=== PATIENT | male | born 1985 | race Caucasian/White ===

== ENCOUNTER 2019-02-19 04:56 | Inpatient (IN) | payer MEDICAID ==
[2019-02-19] VITALS (10 sets, daily range): BP systolic 96–141; BP diastolic 73–97
[~2019-02-19] VITALS: Ht 177.8 cm; Wt 90.7 kg
[2019-02-19] MEDS ORDERED: EPIPEN 2-P0.3 MG/0.3 IM (05:01)
--- NOTE | 2019-02-19 05:14 | Emergency Room Report ---
History of Present Illness General Chief Complaint: Allergic Reaction Source: Patient, EMS Present Illness HPI This a 33-year-old male with a history of idiopathic angioedema with frequent exacerbation. He had multiple admission for angioedema and required intubation in the past. His last admission was a couple weeks ago and was [facility]. He said he was with his friend in [place] when he had difficulty breathing redness to his face and swelling. He called 911. He did not have his EpiPen with him. EMS gave him albuterol treatment and 0.5 of epinephrine IM. Patient said he is feeling better now. Still has hoarseness to his voice. No fever chills. No nausea no vomiting. Similar symptom in the past. He has multiple work-up and has multiple environmental allergies. Allergies: Coded Allergies: No Known Allergies (Unverified , 02/19/19) Patient History Past Medical History: see triage record, old chart reviewed Past Surgical History: none Pertinent Family History: none Social History: Denies: smoking Immunizations: other Reviewed Nursing Documentation: PMH: Agreed; PSxH: Agreed Nursing Documentation-PMH Past Medical History: No History, Except For Hx Asthma: Yes Review of Systems Eye: Denies: eye pain, blurred vision ENT: Reports: throat pain, throat swelling; Denies: ear pain, nose congestion Respiratory: Reports: cough, shortness of breath Cardiovascular: Denies: chest pain, palpitations Gastrointestinal: Denies: abdominal pain, diarrhea, nausea, vomiting Musculoskeletal: Denies: back pain, joint pain Skin: Reports: rash Neurological: Denies: headache, numbness Endocrine: Denies: increased thirst, increased urine Hematologic/Lymphatic: Denies: easy bruising All Other Systems: negative except mentioned in HPI Physical Exam Vital Signs Date Time Temp Pulse Resp B/P (MAP) Pulse Ox O2 Delivery O2 Flow Rate FiO2 02/19/19 04:57 98.6 110 22 136/84 (101) 100 Vitals with tachycardia Sp02 EP Interpretation: reviewed, normal General Appearance: well appearing, no apparent distress, alert Head: normocephalic, atraumatic Eyes: bilateral eye PERRL, bilateral eye EOMI ENT: hearing grossly normal, normal pharynx Neck: full range of motion, supple, no meningismus, other - No stridor Respiratory: chest non-tender, lungs clear, normal breath sounds, decreased breath sounds, accessory muscle use Cardiovascular #1: regular rate, rhythm, no murmur Gastrointestinal: normal bowel sounds, non tender, no mass, no organomegaly, no bruit, non-distended Musculoskeletal: back normal, normal range of motion, gait/station normal Psychiatric: mood/affect normal Skin: other - Flushing and hyperemia to his face Procedures Critical Care Time Critical Care Time Critical care is mandated in this patient who presented with angioedema. Patient require my urgent intervention to attenuate the risks of respiratory collapse which may lead to cardiovascular collapse and . Critical care time is 35 minutes excluding any reportable procedure. Critical care time included evaluation, multiple reevaluation, looking at old charts, interpreting laboratory and diagnostic data, discussing case with patient and family and consultants, and charting. Medical Decision Making Diagnostic Impression: Primary Impression: Idiopathic angioedema Qualified Codes: T78.3XXA - Angioneurotic edema, initial encounter ER Course Patient presents with exacerbation of his angioedema. He received epinephrine and breathing treatment by EMS. I order Benadryl and Solu-Medrol and Pepcid here. Patient said that he is allergic to steroid. He tried Decadron, Solu- Medrol, prednisone in the past. He developed more urticaria with it. He was told not to take it anymore. Patient presents with anaphylaxis secondary to angioedema. Initially he was doing well and had to go upstairs to ICU to intubate a patient. While there he started complaining of itchiness and shortness of breath again. When I came down to reexamine him he has some stridor and increased redness to his upper chest and face. He asked for more epinephrine. He wanted IM because IV epinephrine caused him to go into V. tach. I gave him more Benadryl. He does not have angioedema of his tongue. He does have some swelling to the uvula. Also gave him breathing treatment here because he complained of shortness of breath. Because of his presentation, will admit for monitoring and potential more medication. Patient said at this point he does not need a intubation or IV epinephrine drip. I discussed the case with Dr. Mitchell who accepted patient for admission. EKG Diagnostic Results Rate: normal Rhythm: NSR ST Segments: no acute changes Rhythm Strip Diag. Results EP Interpretation: yes Rate: 109 Rhythm: NSR, no PVC's, no ectopy Chest X-Ray Diagnostic Results Chest X-Ray Diagnostic Results : Chest X-Ray Ordered: Yes # of Views/Limited/Complete: 1 View Indication: Shortness of Breath EP Interpretation: Yes Interpretation: no consolidation, no effusion, no pneumothorax, no acute cardiopulmonary disease Impression: No acute disease Electronically Signed by: Ar Self MD Last Vital Signs Date Time Temp Pulse Resp B/P (MAP) Pulse Ox O2 Delivery O2 Flow Rate FiO2 02/19/19 04:57 98.6 110 22 136/84 (101) 100 Status: improved Disposition: ADMITTED INPATIENT Condition: Serious Ar Self MD Feb 19, 2019 05:14
[2019-02-19] MEDS: Solu-MEDROL 125mg Inj IVP ONE ×2 (05:15→05:25)
[2019-02-19] MEDS ORDERED: DiphenhydrAMINE 50mg/ml Inj IVP ONE ×5 (05:15→11:45)
--- NOTE | 2019-02-19 05:28 | NUR ---
ED Nurse Note: Pt brought in by ambulance from friend's house, pt has hx of allergic reactions with intubation. Pt presents with redness, flushed, swollen neck and upper chest, swollen tongue and throat, hoarsness and difficulty breathing. Pt VSS, 98% on RA, PT is A&Ox4, calm. Given epi enRoute, ERMD at bedside.
--- NOTE | 2019-02-19 05:32 | NUR ---
ED Nurse Note: Pt suddenly felt airway closing, wheezing and minimal air movement heard, sp02 99% on RA, 0.5mg epi given IM, pt immediately felt relief, ERMD at bedside
[2019-02-19 05:35] LABS: BASOPHILS % (AUTO) 0.9 % (0.0-2.0); EOSINOPHILS % (AUTO) 0.7 % (0.0-3.0); HEMATOCRIT 43.9 % (42.0-52.0); HEMOGLOBIN 15.2 G/DL (14.2-18.0); LYMPHOCYTES % (AUTO) 36.8 % (20.0-45.0); MEAN CORPUSCULAR VOLUME 88 FL (80-99); MONOCYTES % (AUTO) 11.1 % (1.0-10.0); NEUTROPHILS % (AUTO) 50.6 % (45.0-75.0); PLATELET COUNT 262 K/UL (150-450); RED BLOOD COUNT 4.99 M/UL (4.70-6.10); RED CELL DISTRIBUTION WIDTH 10.9 % (11.6-14.8); WHITE BLOOD COUNT 8.1 K/UL (4.8-10.8)
[2019-02-19] MEDS ORDERED: Albuterol ud Inhalation HHN ONE (05:45)
[2019-02-19] MEDS ORDERED: EPINEPHrine 1mg/1ml Amp IM ONE (05:45)
--- NOTE | 2019-02-19 05:50 | NUR ---
ED Nurse Note: Pt reporting increased itching on head/face/chest and throat, ERMD notified, 50mg benadryl ordered and given per order
[2019-02-19 05:58] LABS: ANION GAP 10 mmol/L (5-15); BLOOD UREA NITROGEN 17 mg/dL (7-18); CALCIUM 8.3 MG/DL (8.5-10.1); CARBON DIOXIDE 28 MMOL/L (21-32); CHLORIDE 108 MMOL/L (98-107); CREATININE 1.2 MG/DL (0.55-1.30); POTASSIUM 3.4 MMOL/L (3.5-5.1); SODIUM 146 MMOL/L (136-145)
--- NOTE | 2019-02-19 07:05 | NUR ---
ED Nurse Note: Report given by MARA Page. Pt vital signs in stable condition. Pt resting in bed. Pt reports cause of allergic reaction is unknown.
--- NOTE | 2019-02-19 07:05 | NUR ---
HAND-OFF: Report given to MARA Crockett.
[2019-02-19 07:14] LABS: APPEARANCE,URINE CLEAR; BILIRUBIN, URINE NEGATIVE (NEGATIVE); COLOR,URINE PALE YELLOW; GLUCOSE, URINE (UA) NEGATIVE (NEGATIVE); KETONES,URINE 1+ (NEGATIVE); LEUKOCYTE ESTERASE ,URINE NEGATIVE (NEGATIVE); NITRITE,URINE NEGATIVE (NEGATIVE); PH,URINE 5 (4.5-8.0); PROTEIN,URINE NEGATIVE (NEGATIVE); UROBILINOGEN,URINE NORMAL MG/DL (0.0-1.0)
[2019-02-19] MEDS ORDERED: DiphenhydrAMINE 50mg/ml Inj ONE ×3 (07:27→11:29)
--- NOTE | 2019-02-19 07:33 | NUR ---
ED Nurse Note: PT CO of severe and sudden onset of itching in throat and body. ERMD aware. Pt given Benadryl 50mg, tolerated well, reported significant decrease in itchy sensation.
[2019-02-19] MEDS ORDERED: EPINEPHrine 1mg/1ml Amp ONE (07:35)
[2019-02-19] MEDS ORDERED: Acetaminophen 650mg/20.3ml ORAL ONE (07:45)
--- NOTE | 2019-02-19 08:01 | Diagnostic Imaging Report ---
EXAM: XR Chest, 1 View CLINICAL HISTORY: SOB TECHNIQUE: Frontal view of the chest. COMPARISON: No relevant prior studies available. FINDINGS: Lungs: Low lung volume accentuate pulmonary markings. Mild vascular congestion can give this appearance. Pleural space: No pleural effusion. No pneumothorax. Heart: Unremarkable. No cardiomegaly. Mediastinum: Unremarkable. Bones/joints: Unremarkable. Tubes, lines and devices: Overlying chest leads obscure portion of the chest. IMPRESSION: 1. Low lung volume limit evaluation. 2. Possible mild vascular congestion.
--- NOTE | 2019-02-19 08:27 | NUR ---
ED Nurse Note: Pt sleeping in bed, vital signs in stable condition, no signs of difficulty breathing.
--- NOTE | 2019-02-19 10:49 | NUR ---
ED Nurse Note: RN discontinued IV 20g from right neck as it was not patent and applied clean, dry dressing.
--- NOTE | 2019-02-19 10:57 | NUR ---
ED Nurse Note: report given to MARA Rahman in ICU for transfer. Room not ready.
[2019-02-19] MEDS ORDERED: LEXAPRO20 MG ORAL (11:14)
[2019-02-19] MEDS ORDERED: ALPRAZOLAM1 MG ORAL (11:14)
[2019-02-19] MEDS ORDERED: ZYRTEC10 MG ORAL (11:14)
[2019-02-19] MEDS ORDERED: ABILIFY10 MG ORAL (11:14)
[2019-02-19] MEDS ORDERED: MONTELUKAST SOD10 MG ORAL (11:14)
[2019-02-19] MEDS ORDERED: WELLBUTRIN XL150 MG ORAL (11:14)
[2019-02-19] MEDS ORDERED: BENADRYL25 MG ORAL (11:14)
--- NOTE | 2019-02-19 11:30 | NUR ---
NURSE NOTES: RECEIVED PATIENT FROM ER VIA GURNEY. REPORT GIVEN BY Kvng PAREDES RN. PATIENT IS AWAKE, ALERT AND ORIENTED BUT EXPERIENCING THROAT IRRITATION AND FACIAL REDNESS. DUE IV MEDS WAS GIVEN. ON ROOM AIR. SATING AT 100%. PIV'S ON R AC G22 AND R FA G20, SL. THOROUGH SKIN ASSESSMENT DONE. ORIENTED TO ROOM. BEDSIDE TEACHING DONE. CALL LIGHT WITHIN REACH. BED AT LOWEST POSITION. SIDE RAILS UP. WILL CONTINUE TO MONITOR.
--- NOTE | 2019-02-19 11:30 | NUR ---
ED Nurse Note: Pt transferred to ICU, report given to MARA Rahman. Pt began feeling severe itchiness in throat and body during transport, medication was administered in ICU by ED Nurse and ICU MD aware and at bedside. Pt stablized after med administration and reported immediate relief.
--- NOTE | 2019-02-19 11:35 | NUR ---
ED Nurse Note: pt c/o throat irritation and face turns to red during transportation to ICU. Dr. Valenzuela notified and gave 50mg benadryl IVP. per pt, feels better after meds given. Dr. Mitchell at the ICU bed side and notified that meds given due to sx.
--- NOTE | 2019-02-19 11:40 | NUR ---
NURSE NOTES: SEEN AND EXAMINED BY DR VALDEZ WITH NEW ORDERS MADE AND CARRIED OUT. WILL CONTINUE TO MONITOR.
[2019-02-19] MEDS ORDERED: ALPRAZolam 0.5mg tab ORAL PRN (12:00)
[2019-02-19] MEDS ORDERED: Montelukast 10mg tablet ORAL SCH (12:00)
[2019-02-19] MEDS ORDERED: BuPROPion XL 150mg tab ORAL SCH (12:00)
[2019-02-19] MEDS ORDERED: ARIPiprazole 10mg tab ORAL SCH (12:00)
[2019-02-19] MEDS ORDERED: Albuterol/Ipratropium 3ml neb HHN PRN (12:15)
[2019-02-19] MEDS: EPINEPHrine 1mg/1ml Amp IM PRN ×2 (13:01→14:48)
--- NOTE | 2019-02-19 13:02 | NUR ---
NURSE NOTES: PATIENT C/O ITCHINESS AND NOTED TO RED. DUE MEDS GIVEN. HOOKED TO 2L NC. VSS. WILL CONTINUE TO MONITOR.
[2019-02-19] MEDS ORDERED: DiphenhydrAMINE 50mg/ml Inj IVP PRN (15:00)
--- NOTE | 2019-02-19 15:00 | NUR ---
NURSE NOTES: SPOKE WITH Jocy ZEPEDA PATIENT REQUESTED FOR IV BENADRYL TO BE GIVEN Q2HR. AGREED AND MADE AN ORDER. INFORMED PHARMACIST. WILL CONTINUE TO MONITOR.
[2019-02-19] MEDS: DiphenhydrAMINE 50mg/ml Inj IVP PRN ×2 (15:43→15:45)
--- NOTE | 2019-02-19 17:00 | NUR ---
NURSE NOTES: PATIENT IS NOT ON RESPIRATORY DISTRESS.
--- NOTE | 2019-02-19 18:45 | NUR ---
NURSE NOTES: PATIENT INSISTED TO GO HOME AND WANTS GO AMA. INFORMED OF RISKS AND BENEFITS. BUT STIL INSISTED TO GO. CALLED AND LEFT A MESSAGE TO DR VALDEZ INFORMING HIM RE THIS MATTER. TRIED CALLING THE MOTHER TOO BUT DOESN'T ANSWER THE CALL. CN SPOKE WITH THE PATIENT.
--- NOTE | 2019-02-19 19:05 | NUR ---
HAND-OFF: Report given to Jose Gillespie RN.
--- NOTE | 2019-02-19 19:10 | NUR ---
AMA: SEE AMA FORM. Spoke to and okay to CHRISTIAN. No acute distress noted at this time. Pt signed the AMA form. IV taken out. All belongings given to pt and observed pt walking out.
--- NOTE | 2019-02-20 10:33 | NUR ---
CASE MANAGEMENT: CM review and clinical information (face sheet/ ER MD report) faxed to [facility] Dept @ [phone]
--- NOTE | 2019-02-21 13:01 | History and Physical Report ---
CHIEF COMPLAINT/REASON FOR HOSPITALIZATION: The patient is a 33-year-old male admitted with angioedema. HISTORY OF PRESENT ILLNESS: The patient has had a history of angioedema apparently since age 31 uncertain etiology with multiple hospitalizations often in intensive care unit and he was intubated on one occasion to protect his airway. He on this admission developed facial redness, some hoarseness in his voice, and difficulty breathing. He was seen in the emergency room after EMS gave him albuterol and epinephrine. He has had a workup in the past. He has seen an vehicle assembler but there is no clear triggering factor. He is on psychotropic medicines for depression but in the past he stopped and resumed without any change in frequency or intensity of episodes. Today's episode was similar to prior episodes. ALLERGIES: He states he is allergic to steroids and he has been given Solu-Medrol, Decadron, and prednisone, and gets facial reactions including boils shortly after steroids. HABITS: He is a nonsmoker, occasional alcohol. No drugs. 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 FAMILY HISTORY: Sister has had hives, brothers had allergic reaction to penicillin. HOME MEDICATIONS: Include Lexapro 20 mg daily, Wellbutrin 300 mg daily, Abilify 10 mg daily, alprazolam 1 mg every 8 hours as needed, Zyrtec 10 mg daily, montelukast one daily, albuterol inhaler as needed. PAST SURGICAL HISTORY: None. SYSTEM REVIEW: HEAD EYES, EARS, NOSE, AND THROAT: Vision and hearing is good. ENDOCRINE: No known diabetes or thyroid disease. PULMONARY: History of wheezing associated with angioedema. No history of chronic cough or shortness of breath. CARDIAC: No angina or OR. No palpitations. GASTROINTESTINAL: No gastrointestinal bleeding but is queasy during these episodes. GENITOURINARY: He has had episodes of kidney stones in the past. No procedure done. MUSCULOSKELETAL: No history of chronic joint pain. NEUROLOGIC: No CVA or seizures. PHYSICAL EXAMINATION: GENERAL: The patient is alert man, seen shortly after arriving in the emergency room. VITAL SIGNS: Temperature 98.6, pulse 97, respiratory rate 16, blood pressure 138/82, O2 saturation 100% on room air. HEAD EYES, EARS, NOSE, AND THROAT: There is generalized facial erythema. The tongue does not appear swollen to me, perhaps some enlargement the uvula. There is no obvious increase erythema in the throat. NECK: No adenopathy. LUNGS: Clear. HEART: Regular rhythm. I hear no murmur. ABDOMEN: Soft without organomegaly or masses. EXTREMITIES: No edema, cyanosis, or clubbing. NEUROLOGIC: He is alert and oriented. Cranial nerves are intact. SKIN: Generalized facial and erythema throughout his chest in a confluent pattern. There is also some urticaria above the IV site and received some Benadryl. PERTINENT LABORATORY DATA: Show white count 8.1, hemoglobin of 15.2. Potassium is 3.4. IMPRESSION: Angioedema likely idiopathic with urticaria, etiology unclear. He was admitted to the ICU to protect his airway. He is already improving at the time of my exam. PLAN: We will get intermittent epinephrine as needed, increase dose of Zyrtec and Benadryl, and will observe his symptoms. Sj Mitchell M.D. DR: Husam JOB#: [id number] CC:
--- NOTE | 2019-02-22 02:00 | Discharge Summary ---
DATE OF ADMISSION: 02/19/2019 DATE OF DISCHARGE: 02/19/2019 PERTINENT HISTORY: The patient is a 33-year-old man admitted with angioedema and some laryngospasm. See the History and Physical for dictation. COURSE IN THE HOSPITAL: The patient went to the intensive care unit. He was given epinephrine and Benadryl. No steroids because he states he is allergic to them. With the above treatment, he improved and he asked to leave the hospital against medical advice and he left the hospital against medical advice. FINAL DIAGNOSES: 1. Angioedema, idiopathic. 2. Stridor, mild. 3. Leaving hospital AMA. Sj Mitchell M.D. DR: ANGELIQUE JOB#: [id number] CC:
--- NOTE | 2019-02-22 10:39 | NUR ---
*-* INSURANCE *-* ALL CLINICALS HAVE BEEN FAXED TO: ZACH Copeland Ref# rosa isela #[phone] fax#[phone] & [employer] Ref#[id number] #[phone] fax#[phone]
== END 2019-02-19 19:46 | disposition left against medical advice (07) | DRG 916 ==
LOC: EDBD 04:56 → EMR 06:23 → ICU 06:27 → EDBEDREQ 10:00
DX: T78.3XXA Angioneurotic edema, initial encounter (principal); R06.1 Stridor; Z88.8 Allergy status to other drugs, medicaments and biological substances
CPT/HCPCS: 36415; 71045; 80048; 80307; 81003; 85025; 87081; 93005; 96361; 96372; 96374; 96375; 96376; 99291; J7030; J8499

== ENCOUNTER 2020-05-14 01:50 | Emergency (ER) | payer MEDICAID ==
[~2020-05-14] VITALS: Ht 180.3 cm; Wt 86.2 kg
[~2020-05-14 01:50] MED LIST: ABILIFY10 MG ORAL; ALPRAZOLAM1 MG ORAL; BENADRYL25 MG ORAL; EPIPEN 2-P0.3 MG/0.3 IM; LEXAPRO20 MG ORAL; MONTELUKAST SOD10 MG ORAL; WELLBUTRIN XL150 MG ORAL; ZYRTEC10 MG ORAL
[2020-05-14] MEDS ORDERED: DiphenhydrAMINE 50mg/ml Inj ONE ×2 (02:00→04:32)
[2020-05-14] MEDS ORDERED: Lidocaine 1% Plain 30 ml INJ ONE (02:12)
[2020-05-14] MEDS: Lidocaine 1% Plain 30 ml INJ ONE (02:15)
[2020-05-14] MEDS: DiphenhydrAMINE 50mg/ml Inj IM ONE (02:16)
[2020-05-14] MEDS: EPINEPHrine 1mg/1ml Amp IM ONE (02:16)
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
--- NOTE | 2020-05-14 02:20 | NUR ---
spoke with [facility] for possible TFR, face sheet and dictation faxed to [facility].
[2020-05-14 02:21] VITALS: BP 128/78
--- NOTE | 2020-05-14 02:37 | NUR ---
Note aníbal in EDM - 05/14/20 at 0243 by [facility] ED Nurse Note: Pt walked into the ed due to anaphylactic shock; stridor sound and Sob. we put the pt on the monitor and his O2 sat was 97%. I gave him 0.3 epi and 50mg benadryl IM . pt has no sob and stridor at the moment. vitals are stabel.
[2020-05-14 02:38] LABS: BASOPHILS % (AUTO) 0.8 % (0.0-2.0); EOSINOPHILS % (AUTO) 3.1 % (0.0-3.0); HEMATOCRIT 43.8 % (42.0-52.0); HEMOGLOBIN 14.5 G/DL (14.2-18.0); LYMPHOCYTES % (AUTO) 32.2 % (20.0-45.0); MEAN CORPUSCULAR VOLUME 89 FL (80-99); MONOCYTES % (AUTO) 7.9 % (1.0-10.0); PLATELET COUNT 252 K/UL (150-450); RED CELL DISTRIBUTION WIDTH 12.3 % (11.6-14.8); WHITE BLOOD COUNT 6.9 K/UL (4.8-10.8)
--- NOTE | 2020-05-14 02:38 | NUR ---
ED Nurse Note: pt walked into the ed and complanied of sob. he said, he can not breath. I skipped the triage and register part; i took him inside right away. DR and RT called immediately. Both dr and RT arrived as soon as we called them.
--- NOTE | 2020-05-14 02:39 | NUR ---
ED Nurse Note: Pt walked into the ed due to anaphylactic shock; stridor sound and Sob. we put the pt on the monitor and his O2 sat was 97%. I gave him 0.3 epi and 50mg benadryl IM . 3-4 min after i gave him the med pt felt better. pt has no sob and stridor at the moment. vitals are stabel.
[2020-05-14 02:43] VITALS: BP 142/81
--- NOTE | 2020-05-14 02:43 | NUR ---
Note addibrittani in EDM - 05/14/20 at 0305 by [facility] ED Nurse Note: Pt walked into the ed due to anaphylactic shock; stridor sound and Sob. we put the pt on the monitor and his O2 sat was 97%. I gave him 0.3 epi and 50mg benadryl IM . pt has no sob and stridor at the moment. vitals are stable.
[2020-05-14 02:47] LABS: CALCIUM 10.2 MG/DL (8.5-10.1); CREATININE 1.4 MG/DL (0.55-1.30); POTASSIUM 3.8 MMOL/L (3.5-5.1)
[2020-05-14] MEDS: DiphenhydrAMINE 50mg/ml Inj IVP ONE ×2 (03:09→04:40)
[2020-05-14 03:22] VITALS: BP 152/69
--- NOTE | 2020-05-14 04:19 | NUR ---
Spoke with Raquel at [facility]-they received all the information, waiting for doctors acceptance- will call us back.
--- NOTE | 2020-05-14 04:20 | NUR ---
ED Nurse Note: I saw pt recording on his phone with out my permission. I told the pt that he do not have my permission to record me. However; he keeps recording me.
--- NOTE | 2020-05-14 04:42 | NUR ---
ED Nurse Note: pt manipulated the O2 oximeter and when the oxygen sat dropped down 85% and he took a picture and sent it to his partner. pt oxygen level been 96-100% the all time.
[2020-05-14] MEDS: Racemic EPINEPHrine 2.25% 0.5ml HHN ONE (04:46)
[2020-05-14 04:49] VITALS: BP 153/68
--- NOTE | 2020-05-14 05:01 | NUR ---
ED Nurse Note: pt accused the staff that we did not help him and called 911 about it. pt want to go without the medical advice. I gave him the paper but her refused to sign .
--- NOTE | 2020-05-14 05:02 | NUR ---
ED Nurse Note: Took out centeral line successfully; all cath out and no bleeding.
--- NOTE | 2020-05-14 05:15 | NUR ---
Patient signed out AMA,left stable with steady gait, no wheezes ,no pain, refused to sign AMA form. [facility] contacted, spoke with John, notified of patient being AMA- cancel the transfer.
--- NOTE | 2020-05-14 06:48 | Diagnostic Imaging Report ---
EXAM: XR Chest, 1 View CLINICAL HISTORY: SOB TECHNIQUE: Frontal view of the chest. COMPARISON: CXR February 19, 2019 FINDINGS/IMPRESSION: Elevated right hemidiaphragm. There is no focal consolidation, pleural effusion, or pneumothorax. The heart size is within normal limits.
== END 2020-05-14 05:12 | disposition left against medical advice (07) ==
LOC: EMR 02:01
DX: T78.2XXA Anaphylactic shock, unspecified, initial encounter (principal); X58.XXXA Exposure to other specified factors, initial encounter; Y92.9 Unspecified place or not applicable; Z88.9 Allergy status to unspecified drugs, medicaments and biological substances
CPT/HCPCS: 36415; 36556; 71045; 80048; 85025; 94640; 96361; 96372; 96374; 96375; 96376; J1200; J2001; J7030; S0028; Z7502; 99291